=== PATIENT | female | born 1970 | race Hispanic/Latino ===

== ENCOUNTER → 2018-08-21 | Outpatient (CLI) | payer OTHER ==
--- NOTE | 2018-09-15 19:02 | REPMRS ---
Patient History The patient states she has not had a clinical breast exam in over a year. Family history of breast cancer at age 64 in maternal aunt, ovarian cancer at age 50 in maternal aunt. Digital Mammo Screening Bilat: August 21, 2018 - Exam #: [id number] Bilateral CC and MLO view(s) were taken. Technologist: Goran Luisologist FINDINGS: The breast tissue is heterogeneously dense. This may lower the sensitivity of mammography. There has been no change in the appearance of the mammogram from the prior studies. There is a moderate amount of residual fibroglandular tissue which is fairly symmetric. There is no interval development of dominant mass, architectural distortion, or clustered microcalcification typical of malignancy. No change from the prior exam 06/24/16. 3-D tomosynthesis shows no additional findings. No significant changes when compared with prior studies. Assessment: BI-RADS/ACR category 1 mammogram. Negative Mammogram. Recommendation Routine screening mammogram in 1 year (for women over age 40). This mammogram was interpreted with the aid of an FDA-approved computer-aided dectection system. A. Negative x-ray reports should not delay biopsy if a dominant or clinically suspicious mass is present. B. Four to eight percent of cancers are not identified by mammography. C. Adenosis and dense breast may obscure an underlying neoplasm. Electronically Signed By: Jhon Hussein MD 09/15/18 [id number]
== END ==
LOC: M RAD 10:48
PROVIDERS: ATTEND Clinical Nurse Specialist Psychiatric/Mental Health, Adult
DX: Z12.31 Encounter for screening mammogram for malignant neoplasm of breast (principal); Z80.3 Family history of malignant neoplasm of breast; Z80.41 Family history of malignant neoplasm of ovary

== ENCOUNTER 2018-10-06 09:23 | Day surgery (SDC) | payer OTHER ==
[~2018-10-06] VITALS: Ht 162.6 cm; Wt 63.5 kg
[~2018-10-06 09:23] MED LIST: IBUP1TAB6 PO; IBUP1TAB7 PO; LR 1,000 ML IV ONE; MULT1TAB10 PO
[2018-10-06 09:51] LABS: HEMATOCRIT 42.4 % (36.0-47.0); HEMOGLOBIN 14.1 g/dl (12.0-15.5); MEAN CORPUSCULAR HEMOGLOBIN 29.1 pg (27.0-33.0); MEAN CORPUSCULAR HGB CONC 33.3 g/dl (32.0-36.5); MEAN CORPUSCULAR VOLUME 87.4 fl (80.0-96.0); PLATELET COUNT, AUTOMATED 228 10^3/uL (150-450); RED BLOOD COUNT 4.85 10^6/uL (4.00-5.40); WHITE BLOOD COUNT 6.8 10^3/uL (4.0-10.0)
[2018-10-06 10:19] LABS: HCG, SERUM QUALITATIVE NEGATIVE (NEGATIVE)
[2018-10-06] MEDS ORDERED: dexameTHASONE 4 MG/ML 1ML VIAL (J1100) As Ordered ONE (11:14)
[2018-10-06] MEDS ORDERED: fentaNYL 100 MCG/2 ML INJECTION (J3010) As Ordered ONE (11:14)
[2018-10-06] MEDS ORDERED: ONDANSETRON 4MG/2ML VIAL (J2405) As Ordered ONE (11:14)
[2018-10-06] MEDS ORDERED: METOCLOPRAMIDE INJ 10MG/2ML VIAL (J2765) As Ordered ONE (11:14)
[2018-10-06] MEDS ORDERED: PROPOFOL 200 MG/20 ML VIAL As Ordered ONE (11:14)
[2018-10-06] MEDS ORDERED: KETOROLAC 60 MG/2 ML VIAL (J1885) As Ordered ONE (11:14)
[2018-10-06] MEDS ORDERED: LIDOCAINE 2% INJ 100 MG/5 ML SDV (FOR ANES.) As Ordered ONE (11:14)
[2018-10-06] MEDS ORDERED: MIDAZOLAM INJ 2 MG/2 ML VIAL (J2250) As Ordered ONE (11:14)
[2018-10-06] MEDS ORDERED: PHENYLephrine HCL 500 MCG/5 ML (100MCG/ML) SYRINGE (J2370) As Ordered ONE (11:28)
[2018-10-06] MEDS ORDERED: ePHEDrine SULFATE 25 MG/5 ML(5MG/ML) SYRINGE As Ordered ONE (11:54)
[2018-10-06] MEDS ORDERED: PERCOCET 5MG/325MG TAB PO PRN ×2 (12:30)
[2018-10-06] MEDS ORDERED: ONDANSETRON 4MG/2ML VIAL (J2405) IV PRN (12:30)
[2018-10-06] MEDS ORDERED: LR 1,000 ML IV SCH (12:30)
[2018-10-06] MEDS ORDERED: HYDROMORPHONE HCL 0.5 MG/ 0.5 ML SYRINGE (J1170 PER 1) IV PRN (12:30)
[2018-10-06] MEDS: fentaNYL 100 MCG/2 ML INJECTION (J3010) IV PRN ×2 (12:52→13:05)
[2018-10-06 13:46] VITALS: BP 104/59
[2018-10-06] MEDS ORDERED: KETOROLAC 30 MG/ML VIAL (J1885) IV ONE (18:00)
--- NOTE | 2018-10-06 18:07 | RO ---
DATE OF PROCEDURE: 10/06/2018 PREPROCEDURE DIAGNOSIS: Abnormal uterine bleeding and endometrial polyp. POSTPROCEDURE DIAGNOSIS: Abnormal uterine bleeding and endometrial polyp. PROCEDURE: Operative hysteroscopy with polypectomy and dilatation and curettage. SURGEON: Dr. Froy Altamirano SHAREPOINT WEB DEVELOPER: None. ANESTHESIA: General. FLUIDS: 1200 mL. URINE OUTPUT: 150 mL via straight cath. ESTIMATED BLOOD LOSS: 5 mL. COMPLICATIONS: None. ANTIBIOTICS: None. DESCRIPTION OF PROCEDURE: The risks, benefits, indications, and alternatives of the procedure were reviewed with the patient and informed consent was obtained. The patient was taken to the operating room where general anesthesia was obtained without difficulty. The patient was then placed in the lithotomy position using gel-padded Steve stirrups. An exam under anesthesia was then performed and was significant for an anteverted midline fibroid 8-week sized uterus with minimal mobility. The patient was then prepped and draped in the usual sterile fashion and the bladder was drained using in-and-out catheter. A sterile speculum was placed in the patient's vagina, and the cervix was visualized. A single-tooth tenaculum was used to grasp the anterior lip of the cervix. A uterine sound was gently placed into the uterus; it was sounded to 8 cm in length. The cervix was then gently serially dilated to a size 12-Italian with a Nima dilator. The MyoSure hysteroscope was primed. The Hysteroscope was then advanced through the endocervical canal under direct visualization. After distention of the uterus with warm saline, a systemic examination of the uterine cavity was performed. There was a 1.5cm endometrial polyp noted on the posterior endometrial cavity. The decision was then made to proceed with an operative hysteroscopy. The MyoSure hysteroscopic resector was placed into the device. The MyoSure resectoscope was then inserted into the uterus and was used to shave down and remove the endometrial polyp entirely to the level of the surrounding endometrium. All tissue obtained was sent to pathology for review. The MyoSure hysteroscope was then removed. A gentle sharp curettage was then performed. All tissue obtained was sent to pathology for review. The Single-toothed tenaculum was then removed from the anterior lip of the cervix. The tenaculum sites were noted to be hemostatic. All instruments were then confirmed to have been removed from the vagina. The patient tolerated the procedure well. At the completion of the case, sponge, needle and instrument counts were correct times two. The patient was taken to the post-anesthesia care unit (PACU) in stable condition. [facility]
== END 2018-10-06 13:47 | disposition home or self-care (01) ==
LOC: M SDC 09:23
PROVIDERS: ATTEND Obstetrics & Gynecology
DX: N92.6 Irregular menstruation, unspecified (principal); N84.0 Polyp of corpus uteri
CPT/HCPCS: 36415; 58558; 84703; 85027; 88305; J1100; J1885; J2250; J2370; J2405; J2765; J3010